=== PATIENT | female | born 1990 | race Caucasian/White ===

== ENCOUNTER 2016-11-10 22:41 | Emergency (ER) | payer BC ==
--- NOTE | ~2016-11-10 | ER ---
ADMIT: 11/10/2016 RM/LOC: [facility] MR#: [id number] [id number] [place] [address] Emergency Room Report SEX: F AGE: 26 : 1990 DATE: 11/10/2016 ADDENDUM: This 26-year-old female was checked out to me by Cheryl Cronin with results of the CT abdomen and pelvis pending. The CT showed no acute findings. Urine was hazy with 2+ leukocyte esterase, some elevated white blood cells, and she had her most significant tenderness over suprapubic region. I do believe she likely has cystitis, and we are going to treat her as such with a dose of Bactrim in the ER and a prescription for Bactrim b.i.d. for the next 5 days. She is to return to the ER for any worsening or concerning symptoms. Otherwise, follow up with Dr. Harris's office if her symptoms are not completely resolved. DIAGNOSIS: Cystitis. Campbell Mejia MD/ margarita JOB #: [id number] CC: Campbell Mejia MD, Attending Physician Kayla Harris MD, Family Physician
== END 2016-11-11 01:14 | disposition home or self-care (01) ==
LOC: ER 22:41
DX: N30.90 Cystitis, unspecified without hematuria (principal); F17.210 Nicotine dependence, cigarettes, uncomplicated; Z98.890 Other specified postprocedural states